=== PATIENT | female | born 1955 | race Caucasian/White ===

== ENCOUNTER 2018-11-22 16:15 | Emergency (ER) | payer BC ==
--- OUTSIDE RECORDS SUMMARY | 2018-11-22 16:17 | XMS REPORT ---
:1955 [facility] Address [facility] [address]. [address] [place] [id number] Care Team Providers Name Role Phone CHRIS MALDONADO Unavailable Unavailable Problems This patient has no known problems. Allergies, Adverse Reactions, Alerts This patient has no known allergies or adverse reactions. Medications This patient has no known medications. Results Test Description Test Time Test Comments Text Results Atomic Results Result Comments BONE 2018-09-27 [facility] DXA 15:20:[address] DUAL [id number] Patient Name: PAUL MEDINA MR #: [id number] ENERGY : 1955 Age/ Sex: 63/F Req #: [id number] Adm Physician: Ordered by: MALDONADO ANDREW DO Report #: [id number] Location: [facility] Room/Bed: Procedure: [id number] DX/BONE DXA DUAL ENERGY Exam Date: Exam Time: REPORT STATUS: Signed EXAMINATION: Bone mineral density study. COMPARISON: Bone mineral density studies 02/12/2017 and 07/29/2012. HISTORY: Screening for osteoporosis. DISCUSSION: Evaluation of the left hip and lumbar spine was performed utilizing a DEXA Hologic bone densitometer. The study is technically adequate. The left hip total bone mineral density is 0.725 gm/cm2, the T- score is -1.8, and the Z-score is -0.8. The left hip femoral neck bone mineral density is 0.628 gm/cm2, the T-score is -2.0, and the Z-score is -0.7. The lumbar spine total bone mineral density is 0.751 gm/cm2, the T-score is -2.7, and the Z-score is -1.2. IMPRESSION: 1. WHO classification of osteopenia for the left hip with increased risk of fracture. Interval BMD change of -0.3% when compared to baseline and +1.6% when compared to previous 2. WHO classification of osteoporosis for the lumbar spine with high risk of fracture. Interval BMD change of -3.0% when compared to baseline and +4.3% when compared to previous The patient's fracture risk is compared to an age-matched control. Medical evaluation for secondary causes of low bone bone mineral density may be appropriate. Correlate clinically for the necessity and timing of the next bone mineral density study. National Osteoporosis Foundation recommendations: Initiate therapy to reduce fracture risk in postmenopausal women with -BMD t-scores below -2.0 by central DXA with no risk factors -BMD t-scores below -1.5 by central DXA with one or more risk factors (first deg relative with hip fracture, prior personal fracture , low body weight, smoking) -A prior vertebral or hip fracture AACE (Clinical Endocrinology) recommends treating the following: Postmenopausal women who have osteoporosis as diagnosed by fragility fractures or t scores -2.5 or below Postmenopausal women who have risk factors ( including fh of hip fracture, low body weight, smoking, risk of falling, high bone turnover , advancing age) and borderline low BMD T scores of -1.5 or below Adequate intake of calcium (at least 1200mg/day) and vitamin D (400-800 IU/day). Regular weight bearing and muscle - strengthening exercises Avoid smoking and excessive alcohol Signed by: Dr. Juliette Sherwood M.D. on 09/27/2018 3:22 PM Dictated By: JULIETTE SHERWOOD MD 1522 Transcribed By: FLORENCIA on 09/27/18 1522 COPY TO: CHRIS MALDONADO DO MAMMOGR 2018-09-27 [facility] 15:18:[address], [place], [place] DIGITAL [address] Patient Name: PAUL MEDINA MR #: [id number] SCR : 1955 Age/Sex: 63/F BILAT Req #: [id number] Adm Physician: Ordered by: MALDONADO ANDREW DO Report #: [id number] Location: MAMMO Room/Bed: Procedure: [id number] MG/MAMMOGRAPHY DIGITAL SCR BILAT Exam Date: 09/27 Exam Time: 1309 REPORT STATUS: Signed #[id number] - [id number] #BILATERAL DIGITAL SCREENING MAMMOGRAM WITH CAD: 09/27/2018 CLINICAL: Routine screening. Comparison is made to exams dated: 02/12/2017 mammogram and 10/17/2015 mammogram - [facility]. Current study contains 4 films. The tissue of both breasts is heterogeneously dense. This may lower the sensitivity of mammography. Current study was also evaluated with a Computer Aided Detection (CAD) system. There is a benign intramammary node in the right breast. There is a mole marker on the right breast. No significant masses, calcifications, or other findings are seen in either breast. There has been no significant interval change. IMPRESSION: BENIGN There is no mammographic evidence of malignancy. A 1 year screening mammogram is recommended. The patient will be notified by letter of the results. Bentley fleming/ian: 12:00:02 Performance Improvement Coordinator: Roxanne ARROYO)(You), [facility] letter sent: Compared to Prior B9 Mammogram BI-RADS: 2 Benign Dictated By: BENTLEY STACY DO 1200 Transcribed By: IAN on 10/05/18 1200 COPY TO: CHRIS MALDONADO DO
--- NOTE | 2018-11-22 17:02 | EDPHYS ---
Physician Documentation [facility] Name: Chandni Roger Age: 63 yrs Sex: Female : 1955 Arrival Date: 11/22/2018 Time: 16:19 Bed 14 Private MD: ED Physician Moises Dietz HPI: 11/22 16:57 This 63 yrs old Female presents to ER via Ambulatory with complaints of High ps1 Blood Pressure. 16:57 patient has a history of hypertension and used to take bystolic. This was many years ps1 ago. She states that she hasnt taken medication for several years but has noticed since she has gained some weight back that she has noticed her BP elevating over the last couple of months. Once her diastolic went over a hundred she became concerned and has not been able to get into a primary care office for a week. She is asymptomatic. . Historical: - Allergies: 16:41 No Known Allergies; aj - Home Meds: 16:41 Imitrex 6 mg/0.5 mL Sub-Q soln 0.5 mL [Active]; aj - PMHx: 16:41 Migraines; Hypertension; aj - PSHx: 16:41 Tonsillectomy; Hysterectomy; aj - Immunization history:: Adult Immunizations up to date. - Social history:: Smoking status: Patient/guardian denies using tobacco. - Ebola Screening: : Patient negative for fever greater than or equal to 101.5 degrees Fahrenheit, and additional compatible Ebola Virus Disease symptoms Patient denies exposure to infectious person Patient denies travel to an Ebola-affected area in the 21 days before illness onset No symptoms or risks identified at this time. ROS: 16:57 Constitutional: Negative for fever, chills, and weight loss, Eyes: Negative for injury, ps1 pain, redness, and discharge, Cardiovascular: Negative for chest pain, palpitations, and edema, Respiratory: Negative for shortness of breath, cough, wheezing, and pleuritic chest pain, Abdomen/GI: Negative for abdominal pain, nausea, vomiting, diarrhea, and constipation, MS/Extremity: Negative for injury and deformity, Skin: Negative for injury, rash, and discoloration, Neuro: Negative for headache, weakness, numbness, tingling, and seizure. Exam: 16:57 Constitutional: This is a well developed, well nourished patient who is awake, alert, ps1 and in no acute distress. Head/Face: Normocephalic, atraumatic. Eyes: Pupils equal round and reactive to light, extra-ocular motions intact. Lids and lashes normal. Conjunctiva and sclera are non-icteric and not injected. Chest/axilla: Normal chest wall appearance and motion. Nontender with no deformity. No lesions are appreciated. Cardiovascular: Regular rate and rhythm. No gallops, murmurs, or rubs. Normal PMI, no JVD. No pulse deficits. Respiratory: Lungs have equal breath sounds bilaterally, clear to auscultation and percussion. No rales, rhonchi or wheezes noted. No increased work of breathing, no retractions or nasal flaring. Abdomen/GI: Soft, non-tender, with normal bowel sounds. No distension or tympany. No guarding or rebound. No evidence of tenderness throughout. Skin: Warm, dry with normal turgor. Normal color with no rashes, no lesions, and no evidence of cellulitis. MS/ Extremity: Pulses equal, no cyanosis. Neurovascular intact. Full, normal range of motion. Neuro: Awake and alert, GCS 15, oriented to person, place, time, and situation. Cranial nerves II-XII grossly intact. Sensory grossly intact. Psych: Awake, alert, with orientation to person, place and time. Behavior, mood, and affect are within normal limits. Vital Signs: 16:41 BP 170 / 101; Pulse 77; Resp 20; Temp 98.4; Pulse Ox 100% on R/A; Weight 71.67 kg; aj Height 5 ft. 0 in. (152.40 cm); 17:20 BP 170 / 93; Pulse 66; Resp 16; Pulse Ox 99% on R/A; rb1 16:41 Body Mass Index 30.86 (71.67 kg, 152.40 cm) aj MDM: 16:57 Data reviewed: vital signs, nurses notes, and as a result, I will discharge patient, ps1 will give triamterine and hctz. follow up in a week. . 17:01 Patient medically screened. ps1 Administered Medications: No medications were administered Disposition: 11/22/18 17:01 Discharged to Home. Impression: Hypertension, Established, not currently controlled. - Condition is Stable. - Discharge Instructions: Hypertension. - Prescriptions for Triamterene- Hydrochlorothiazide 37.5-25 mg Oral Tablet - take 1 tablet by ORAL route once daily; 20 tablet. - Medication Reconciliation Form, Thank You Letter, Antibiotic Education, Prescription Opioid Use form. - Follow up: Private Physician; When: 1 week; Reason: Recheck today's complaints, Continuance of care, Re-evaluation by your physician. Follow up: Emergency Department; When: As needed; Reason: Worsening of condition. Signatures: Mora Hernandez RN RN aj Joselyn Redman RN RN rb1 Moises Dietz MD MD ps1 Corrections: (The following items were deleted from the chart) 17:23 17:01 11/22/2018 17:01 Discharged to Home. Impression: Hypertension, Established, not rb1 currently controlled. Condition is Stable. Forms are Medication Reconciliation Form, Thank You Letter, Antibiotic Education, Prescription Opioid Use. Follow up: Private Physician; When: 1 week; Reason: Recheck today's complaints, Continuance of care, Re-evaluation by your physician. Follow up: Emergency Department; When: As needed; Reason: Worsening of condition. ps1
--- NOTE | 2018-11-22 17:02 | ER ---
Nurse's Notes [facility] Name: Chandni Roger Age: 63 yrs Sex: Female : 1955 Arrival Date: 11/22/2018 Time: 16:19 Bed 14 Private MD: Diagnosis: Hypertension, Established, not currently controlled Presentation: 11/22 16:40 Presenting complaint: Patient states: Reports trending high BP over past 2-3 months. aj Patient was unable to get in to see PCP. Transition of care: patient was not received from another setting of care. Onset of symptoms was August 2018. Risk Assessment: Do you want to hurt yourself or someone else? Patient reports no desire to harm self or others. Initial Sepsis Screen: Does the patient meet any 2 criteria? No. Patient's initial sepsis screen is negative. Does the patient have a suspected source of infection? No. Patient's initial sepsis screen is negative. Care prior to arrival: None. 16:40 Method Of Arrival: Ambulatory 16:40 Acuity: LALA 2 Triage Assessment: 16:41 General: Appears in no apparent distress. comfortable, Behavior is calm, cooperative, aj appropriate for age. Pain: Denies pain. Neuro: Level of Consciousness is awake, alert, obeys commands, Oriented to person, place, time, situation, Appropriate for age. Respiratory: Airway is patent Respiratory effort is even, unlabored, Respiratory pattern is regular, symmetrical. Derm: Skin is intact, is healthy with good turgor, Skin is pink, warm \T\ dry. normal. Historical: - Allergies: 16:41 No Known Allergies; aj - Home Meds: 16:41 Imitrex 6 mg/0.5 mL Sub-Q soln 0.5 mL [Active]; aj - PMHx: 16:41 Migraines; Hypertension; aj - PSHx: 16:41 Tonsillectomy; Hysterectomy; aj - Immunization history:: Adult Immunizations up to date. - Social history:: Smoking status: Patient/guardian denies using tobacco. - Ebola Screening: : Patient negative for fever greater than or equal to 101.5 degrees Fahrenheit, and additional compatible Ebola Virus Disease symptoms Patient denies exposure to infectious person Patient denies travel to an Ebola-affected area in the 21 days before illness onset No symptoms or risks identified at this time. Screenin:35 Abuse screen: Denies threats or abuse. Nutritional screening: No deficits noted. rb1 Tuberculosis screening: No symptoms or risk factors identified. Fall Risk None identified. Assessment: 16:35 General: Appears in no apparent distress. comfortable, Behavior is calm, cooperative. rb1 Pain: Denies pain. Neuro: Level of Consciousness is awake, alert, obeys commands, Oriented to person, place, time, situation. Cardiovascular: Reports since high blood pressure for about 2-3 months Denies chest pain, shortness of breath, Capillary refill < 3 seconds is brisk in bilateral fingers. Respiratory: Airway is patent Respiratory effort is even, unlabored, Respiratory pattern is regular, symmetrical. GI: No signs and/or symptoms were reported involving the gastrointestinal system. : No signs and/or symptoms were reported regarding the genitourinary system. Derm: Skin is pink, warm \T\ dry. Musculoskeletal: Range of motion: intact in all extremities. 17:20 Reassessment: Patient appears in no apparent distress at this time. No changes from rb1 previously documented assessment. Vital Signs: 16:41 BP 170 / 101; Pulse 77; Resp 20; Temp 98.4; Pulse Ox 100% on R/A; Weight 71.67 kg; aj Height 5 ft. 0 in. (152.40 cm); 17:20 BP 170 / 93; Pulse 66; Resp 16; Pulse Ox 99% on R/A; rb1 16:41 Body Mass Index 30.86 (71.67 kg, 152.40 cm) ED Course: 16:19 Patient arrived in ED. rg4 16:33 Joselyn Redman, RN is Primary Nurse. rb1 16:33 Moises Dietz MD is Attending Physician. ps1 16:35 Patient has correct armband on for positive identification. Bed in low position. Call rb1 light in reach. Side rails up X 1. panel monitor on. Pulse ox on. NIBP on. 16:40 Triage completed. aj 16:41 Arm band placed on left wrist. Patient placed in an exam room. aj 17:23 No provider procedures requiring assistance completed. Patient did not have IV access rb1 during this emergency room visit. Administered Medications: No medications were administered Outcome: 17:01 Discharge ordered by . ps1 17:23 Patient left the ED. rb1 17:23 Discharged to home ambulatory. rb1 17:23 Condition: stable 17:23 Discharge instructions given to patient, Instructed on discharge instructions, follow up and referral plans. medication usage, Demonstrated understanding of instructions, follow-up care, medications, Prescriptions given X 1. Signatures: Mora Hernandez RN RN aj Barber, Rebecca, RN RN rb1 Black, Marilyn rg4 Moises Dietz MD MD ps1
== END 2018-11-22 17:23 | disposition home or self-care (01) ==
LOC: ER 16:15
DX: I10 Essential (primary) hypertension (principal)
CPT/HCPCS: 99284